=== PATIENT | male | born 1980 | race Caucasian/White ===

== ENCOUNTER 2020-04-21 09:10 | Day surgery (SDC) | payer OTHER, SELFPAY ==
[~2020-04-21] VITALS: Ht 188 cm; Wt 97.5 kg
[2020-04-21] MEDS ORDERED: MIDAZOLAM 2 MG/2 ML VIAL ONE (11:48)
[2020-04-21] MEDS ORDERED: fentaNYL citrate 0.05 MG/ML VIAL ONE (11:48)
[2020-04-21] MEDS ORDERED: LIDOCAINE 2% 100 MG/5 ML UJET TP ONE ×2 (11:48→14:00)
[2020-04-21] MEDS ORDERED: MIDAZOLAM 2 MG/2 ML VIAL IVP ONE (14:00)
[2020-04-21] MEDS ORDERED: fentaNYL citrate 0.05 MG/ML VIAL IVP ONE (14:00)
== END 2020-04-21 12:50 | disposition home or self-care (01) ==
LOC: MDS 09:10 → MFCC 10:13 → MDS 12:50
PROVIDERS: ATTEND Internal Medicine Gastroenterology
DX: K52.9 Noninfective gastroenteritis and colitis, unspecified (principal)
CPT/HCPCS: 45380; 87426; 88305; J2250; J3010